=== PATIENT | male | born 1965 | race Caucasian/White ===

== ENCOUNTER 2017-08-31 16:45 | Emergency (ER) | payer BC ==
--- NOTE | 2017-08-31 17:13 | ED ---
Skin Complaint - HPI Summary HPI Summary: 51 year old male presents with complains of right ring finger abscess. - History of Current Complaint Time Seen by Provider: 08/31/17 17:13 Stated Complaint: RIGHT RING FINGER COMPLAINT Hx Obtained From: Patient Onset/Duration: Started Minutes Ago Skin Exposure Onset/Duration: Days Ago Timing: Constant Onset Severity: Moderate Current Severity: Moderate Pain Scale Used: 0-10 Numeric - 8 - Allergy/Home Medications Allergies/Adverse Reactions: Allergies Allergy/AdvReac Type Severity Reaction Status Date / Time Penicillins [PCN] Allergy Unknown Verified 08/31/17 17:27 Reaction Details Home Medications: Home Medications Lisinopril TAB* [Prinivil TAB*] 5 mg PO DAILY 08/31/17 [History Confirmed ] Metoprolol Tartrate TAB* [Lopressor TAB*] 50 mg PO DAILY 08/31/17 [History Confirmed 08/31/17] Simvastatin (NF) [Zocor (NF)] 20 mg PO 1700 08/31/17 [History Confirmed 08/31/17 ] PMH/Surg Hx/FS Hx/Imm Hx Previously Healthy: Yes Review of Systems Constitutional: Negative Eyes: Negative ENT: Negative Cardiovascular: Negative Respiratory: Negative Gastrointestinal: Negative Genitourinary: Negative Musculoskeletal: Negative Positive: Other - abscess on right ring finger. Neurological: Negative All Other Systems Reviewed And Are Negative: Yes Physical Exam Triage Information Reviewed: Yes Vital Signs Reviewed: Yes Skin: Positive: Warm, Other - right ring finger abscess Course/Dx - Diagnoses Provider Diagnoses: Abscess of finger of right hand Discharge - Discharge Plan Condition: Stable Disposition: HOME Prescriptions: Sulfamethox/Trimethoprim DS* [Bactrim DS 800/160 TAB*] 1 tab PO BID #20 tab Patient Education Materials: Swollen Joint (ED) Referrals: Jonas Ward MD [Medical Doctor] -
[2017-08-31 17:25] VITALS: BP 155/103
--- NOTE | 2017-08-31 18:01 | RAD ---
INDICATION: Foreign body COMPARISON: None TECHNIQUE: AP, lateral, and oblique views were obtained. FINDINGS: There are no focal bony findings. The joint spaces are intact. There is mild diffuse soft tissue swelling. IMPRESSION: NO FRACTURE OR FOREIGN BODY
== END 2017-08-31 18:20 | disposition home or self-care (01) ==
LOC: UCCORT 16:45
DX: L02.511 Cutaneous abscess of right hand (principal)
CPT/HCPCS: 73140; 99202; G0463